=== PATIENT | male | born 1990 | race Caucasian/White ===

== ENCOUNTER 2016-09-19 16:21 | Emergency (ER) | payer OTHER ==
[2016-09-19 19:08] LABS: HEMOGLOBIN 17.5 gm/dl (14.0-17.5); RED BLOOD COUNT 5.8 M/UL (4.20-5.50); WHITE BLOOD COUNT 9.3 K/UL (4.5-11.0)
[2016-09-19 19:28] LABS: BUN/CREATININE RATIO 12 (0-10)
== END 2016-09-19 20:20 | disposition home or self-care (01) ==
LOC: ER1 16:21
PROVIDERS: Physician Assistant Medical
DX: K51.00 Ulcerative (chronic) pancolitis without complications (principal); F17.210 Nicotine dependence, cigarettes, uncomplicated
CPT/HCPCS: 36415; 80053; 81001; 82150; 83690; 85025; 96361; 96374; 96375; 99284; J2270; J2405; J7030; J7050; Q9962

== ENCOUNTER 2020-05-01 14:42 | Emergency (ER) | payer OTHER ==
[~2020-05-01 14:42] MED LIST: IBUPROFEN600 MG PO; LORTAB 5-325 M1 EACH PO
[2020-05-01] MEDS ORDERED: KEFLEX CAP 500500 MG PO (16:54)
[2020-05-01] MEDS ORDERED: NAPROSYN500 MG PO (16:54)
== END 2020-05-01 17:16 | disposition home or self-care (01) ==
LOC: ER1 14:42
DX: S81.011A Laceration without foreign body, right knee, initial encounter (principal); F17.200 Nicotine dependence, unspecified, uncomplicated; Z23 Encounter for immunization; W25.XXXA Contact with sharp glass, initial encounter; Y92.009 Unspecified place in unspecified non-institutional (private) residence as the place of occurrence of the external cause
CPT/HCPCS: 12002; 73564; 90471; 90715; 99283